=== PATIENT | male | born 1930 | race Caucasian/White ===

== ENCOUNTER 2016-09-09 09:13 | Emergency (ER) | payer MEDICARE, BC ==
[2016-09-09] MEDS ORDERED: SODIUM CHLORIDE 0.9% 1,000 ML IV ONE (10:11)
[2016-09-09] MEDS ORDERED: HYDROmorphone 1 MG/ML SYRINGE IVP STA (10:11)
[2016-09-09] MEDS ORDERED: KETOROLAC 60 MG/2 ML VIAL IVP STA (10:11)
[2016-09-09] MEDS ORDERED: ONDANSETRON 4 MG/2 ML VIAL IVP STA (10:11)
[2016-09-09] MEDS ORDERED: HYDROmorphone 1 MG/ML SYRINGE ONE (10:16)
[2016-09-09] MEDS ORDERED: KETOROLAC 30 MG/ML VIAL ONE (10:16)
[2016-09-09] MEDS ORDERED: ONDANSETRON 4 MG/2 ML VIAL ONE (10:55)
[2016-09-09] MEDS ORDERED: IOPAMIDOL-300 100 ML VIAL IVP ONE (11:49)
== END 2016-09-09 13:33 | disposition home or self-care (01) ==
DX: K56.60 Unspecified intestinal obstruction (principal); R11.2 Nausea with vomiting, unspecified; I10 Essential (primary) hypertension; I25.10 Atherosclerotic heart disease of native coronary artery without angina pectoris; Z95.1 Presence of aortocoronary bypass graft; Z79.82 Long term (current) use of aspirin
CPT/HCPCS: 36415; 74177; 80053; 83690; 85025; 96361; 96374; 96375; 99283; 99284; J1170; Q9967

== ENCOUNTER 2017-04-10 10:27 | Outpatient (CLI) | payer MEDICARE, BC ==
--- NOTE | 2017-04-10 12:53 | XRAY Report ---
THREE VIEW LEFT KNEE: 04/10/2017 CLINICAL INDICATION: Pain. FINDINGS: AP, lateral, and sunrise views of the left knee are compared to previous films of 05/17/20 14. Mild osteoarthritis is present. There is no evidence of fracture. No effusion is seen. Surgical clips are stable in the medial soft tissues. IMPRESSION: MILD OSTEOARTHRITIS. NO EVIDENCE OF FRACTURE. NO SIGNIFICANT INTERVAL CHANGE. JOB #: [id number] EXT JOB #:[id number]
== END 2017-04-10 10:28 | disposition home or self-care (01) ==
LOC: DI.S 10:27
PROVIDERS: ATTEND Internal Medicine
DX: M17.12 Unilateral primary osteoarthritis, left knee (principal)

== ENCOUNTER 2017-04-12 09:50 | Outpatient (CLI) | payer MEDICARE, BC ==
--- NOTE | 2017-04-12 11:24 | Ultrasound Report ---
ULTRASOUND LEFT ANTERIOR COBB: 04/12/2017 CLINICAL INDICATION: Edema and erythematous nodule. TECHNIQUE: Real-time scanning was performed with accounts payable representative static images obtained. FINDINGS: Ultrasound of the region of swelling was performed. There is a 2.2 x 2.1 x 0.7 cm hematom a, with surrounding edema. No sonographically suspicious findings are seen. IMPRESSION: SMALL HEMATOMA, WITH SURROUNDING EDEMA. JOB #: [id number] [id number] JOB #:[id number]
== END 2017-04-12 09:51 | disposition home or self-care (01) ==
LOC: DI 09:50
PROVIDERS: ATTEND Internal Medicine
DX: S80.12XA Contusion of left lower leg, initial encounter (principal); R60.0 Localized edema
CPT/HCPCS: 76882

== ENCOUNTER 2017-06-11 15:06 | Outpatient (CLI) | payer MEDICARE, BC ==
[2017-06-11 17:59] LABS: HCT - HEMATOCRIT 34.6 % (42.0-52.0); HGB - HEMOGLOBIN 11.5 g/dL (14.0-18.0); MEAN CORPUSCULAR HEMOGLOBIN 30.6 pg (27.0-31.0); MEAN CORPUSCULAR HGB CONC 33.4 g/dL (32.0-36.0); MEAN CORPUSCULAR VOLUME 91.8 fL (80.0-94.0); MEAN PLATELET VOLUME 8.3 fL (7.4-11.4); RED BLOOD COUNT 3.77 10^6/uL (4.70-6.10); RED CELL DISTRIBUTION WIDTH 14.6 % (12.0-15.0); WHITE BLOOD COUNT 4.8 x10^3/uL (4.8-10.8)
[2017-06-11 18:38] LABS: CALCIUM 8.1 mg/dL (8.5-10.3); CREATININE 0.9 mg/dL (0.6-1.2)
== END 2017-06-11 15:07 | disposition home or self-care (01) ==
LOC: LAB.F 15:06
PROVIDERS: ATTEND Surgery
DX: K56.600 Partial intestinal obstruction, unspecified as to cause (principal)
CPT/HCPCS: 36415; 80048

== ENCOUNTER 2017-07-01 10:30 | Emergency (ER) | payer MEDICARE, BC ==
--- NOTE | 2017-07-01 13:18 | ED Physician Documentation ---
History of Present Illness - Stated complaint Stated Complaint: LOW ABD PX - Chief complaint Chief Complaint: Abd Pain - History obtained from History obtained from: Patient - History of Present Illness Timing: How many days ago (2) Pain level max: 5 Pain level now: 2 Improved by: reducing the hernia Worsened by: nothing - Additonal information Additional information: Patient is an 86-year-old male who presents to the emergency department with what appears to be a left sided abdominal hernia, complains of it increasing in size over the past week or so, states it is still reducible. Did have some pain , though this is now resolved. No vomiting. Review of Systems Throat: denies: Sore throat Cardiac: denies: Chest pain / pressure Respiratory: denies: Cough GI: denies: Vomiting, Constipation, Diarrhea Skin: denies: Rash Musculoskeletal: denies: Neck pain, Back pain Neurologic: denies: Headache PD PAST MEDICAL HISTORY - Past Medical History Past Medical History: Yes Cardiovascular: Hypertension, High cholesterol, Coronary artery disease Respiratory: Sleep apnea Neuro: None Endocrine/Autoimmune: None GI: Other : Benign prostate hypertrophy HEENT: Chronic vision loss, Chronic hearing loss Psych: None Musculoskeletal: Osteoarthritis, Chronic back pain Derm: Psoriasis, Other - Past Surgical History Past Surgical History: Yes General: Appendectomy, Bowel surgery, Gastric surgery, Colonoscopy, EGD, Other Ortho: Hip replacement Cardiovascular: CABG, Other HEENT: Tonsil/Adenoidectomy Derm: Skin cancer surgery - Present Medications Home Medications: Ambulatory Orders Medication Instructions Recorded Confirmed Aspirin [Aspir 81] 81 mg PO DAILY 06/05/13 07/01/17 Lisinopril [Zestril] 2.5 mg PO DAILY 06/05/13 07/01/17 Atorvastatin Calcium 80 mg PO DAILY 11/19/15 07/01/17 - Allergies Allergies/Adverse Reactions: Allergies Allergy/AdvReac Type Severity Reaction Status Date / Time No Known Drug Allergies Allergy Verified 07/01/17 11:01 - Social History Does the pt smoke?: No Smoking Status: Never smoker Does the pt drink ETOH?: No Does the pt have substance abuse?: No - Immunizations Immunizations are current?: Yes Immunizations: TDAP current <10years PD ED PE NORMAL - Vitals Vital signs reviewed: Yes - General General: Alert and oriented X 3, No acute distress - HEENT HEENT: Moist mucous membranes - Neck Neck: Supple, no meningeal sign - Cardiac Cardiac: RRR - Respiratory Respiratory: No respiratory distress, Clear bilaterally - Abdomen Abdomen: Soft, Non tender, Non distended, Other (small L sided femoral hernia. easily reduces. no tenderness over the remainder of the abdomen.) - Derm Derm: Warm and dry - Neuro Neuro: Alert and oriented X 3 - Psych Psych: Normal mood, Normal affect Results - Vitals Vitals: Vital Signs - 24 hr 07/01/17 07/01/17 10:57 13:33 Temperature 36.5 C Heart Rate 75 81 Respiratory 16 20 Rate Blood Pressure 128/75 146/80 H O2 Saturation 99 98 Oxygen O2 Source Room air PD MEDICAL DECISION MAKING - ED course Complexity details: considered differential, d/w patient ED course: Patient is an 86-year-old male who presents to the emergency department with an easily reducible left femoral hernia. No evidence of obstruction or incarceration. No gangrene. Abdomen is soft, nontender nondistended. We will have him follow-up with his doctor for further evaluation and care. Patient counseled regarding signs and symptoms for which I believe and urgent re- evaluation would be necessary. Patient with good understanding of and agreement to plan and is comfortable going home at this time This document was made in part using voice recognition software. While efforts are made to proofread this document, sound alike and grammatical errors may occur. Departure - Departure Disposition: 01 Home, Self Care Clinical Impression: Femoral hernia of left side Condition: Good Instructions: ED Hernia Inguinal Follow-Up: Lebron Cortes MD [Primary Care Provider] - Juliette Garcia MD [Physician No Access] - Within 1 week Comments: You appear to have a hernia on the left side of your abdomen. If you are unable to reduce this at home, the pain becomes severe or you develop vomiting, you need to return immediately. Otherwise follow-up with your doctor as instructed. Discharge Date/Time: 07/01/17 13:33
[2017-07-01 13:36] VITALS: BP 146/80
== END 2017-07-01 13:33 | disposition home or self-care (01) ==
LOC: ED 10:30
DX: K41.90 Unilateral femoral hernia, without obstruction or gangrene, not specified as recurrent (principal); I10 Essential (primary) hypertension; I25.10 Atherosclerotic heart disease of native coronary artery without angina pectoris; Z95.1 Presence of aortocoronary bypass graft; E78.00 Pure hypercholesterolemia, unspecified; G47.30 Sleep apnea, unspecified; N40.0 Benign prostatic hyperplasia without lower urinary tract symptoms; M19.90 Unspecified osteoarthritis, unspecified site; Z79.82 Long term (current) use of aspirin
CPT/HCPCS: 99283; 99284

== ENCOUNTER 2017-07-15 08:25 | Emergency (ER) | payer MEDICARE, BC ==
[2017-07-15] MEDS ORDERED: FUROSEMIDE 40 MG/4 ML VIAL IVP STA (09:30)
[2017-07-15] MEDS ORDERED: FUROSEMIDE 40 MG/4 ML VIAL ONE (10:03)
[2017-07-15 10:13] LABS: BASOPHILS % (AUTO) 1.2 %; EOSINOPHILS # (AUTO) 0.1 10^3/uL (0.0-0.7); EOSINOPHILS % (AUTO) 1.9 %; HCT - HEMATOCRIT 31.8 % (42.0-52.0); HGB - HEMOGLOBIN 10.8 g/dL (14.0-18.0); LYMPHOCYTES # (AUTO) 0.9 10^3/uL (1.5-3.5); LYMPHOCYTES % (AUTO) 22.9 %; MEAN CORPUSCULAR HEMOGLOBIN 29.5 pg (27.0-31.0); MEAN CORPUSCULAR HGB CONC 33.8 g/dL (32.0-36.0); MEAN CORPUSCULAR VOLUME 87.2 fL (80.0-94.0); MEAN PLATELET VOLUME 6.4 fL (7.4-11.4); MONOCYTES # (AUTO) 0.4 10^3/uL (0.0-1.0); MONOCYTES % (AUTO) 9.7 %; NEUTROPHILS # (AUTO) 2.5 10^3/uL (1.5-6.6); NEUTROPHILS % (AUTO) 64.3 %; RED BLOOD COUNT 3.65 10^6/uL (4.70-6.10); RED CELL DISTRIBUTION WIDTH 15.1 % (12.0-15.0); UNCORRECTED WHITE BLOOD COUNT 3.9 x10^3/uL; WHITE BLOOD COUNT 3.9 x10^3/uL (4.8-10.8)
[2017-07-15 10:28] LABS: ALBUMIN/GLOBULIN RATIO 0.8 (1.0-2.2); BILIRUBIN,TOTAL 0.6 mg/dL (0.2-1.0); CREATININE 0.9 mg/dL (0.6-1.2); POTASSIUM 3.9 mmol/L (3.5-5.0); TOTAL PROTEIN 5.8 g/dL (6.7-8.2)
[2017-07-15 12:07] LABS: BILIRUBIN,URINE NEGATIVE (NEGATIVE)
[2017-07-15 12:11] LABS: UA CHARGE (STRIP ONLY) YES; UR CULTURE IF IND NOT INDICATED
[2017-07-15 12:43] VITALS: BP 99/65
--- NOTE | 2017-07-15 13:00 | ED Physician Documentation ---
History of Present Illness - Stated complaint Stated Complaint: LEFT LEG PX - Chief complaint Chief Complaint: General - History obtained from History obtained from: Patient - History of Present Illness Timing: How many days ago (3) - Additonal information Additional information: 86-year-old male has had some recent surgery done at [facility] in [place] about 1 week ago about 3 days ago he began to develop some swelling of his lower extremities. He has some pain associated with this. Both of his lower extremities are swollen. He had an inguinal hernia done open and and ex-lap done laproscopically for lysis of adhesions. Review of Systems Constitutional: denies: Fever, Chills, Myalgias, Fatigue Eyes: denies: Decreased vision Ears: denies: Ear pain Nose: denies: Congestion Throat: denies: Sore throat Cardiac: denies: Chest pain / pressure, Palpitations Respiratory: denies: Dyspnea, Cough GI: denies: Abdominal Pain, Nausea, Vomiting : denies: Dysuria, Frequency Skin: denies: Rash Musculoskeletal: reports: Extremity pain, Extremity swelling. denies: Neck pain , Back pain Neurologic: denies: Generalized weakness, Focal weakness, Numbness PD PAST MEDICAL HISTORY - Past Medical History Past Medical History: Yes Cardiovascular: Hypertension, High cholesterol, Coronary artery disease Respiratory: Sleep apnea Neuro: None Endocrine/Autoimmune: None GI: Other : Benign prostate hypertrophy HEENT: Chronic vision loss, Chronic hearing loss Psych: None Musculoskeletal: Osteoarthritis, Chronic back pain Derm: Psoriasis, Other - Past Surgical History Past Surgical History: Yes General: Appendectomy, Bowel surgery, Gastric surgery, Colonoscopy, EGD, Other Ortho: Hip replacement Cardiovascular: CABG, Other HEENT: Tonsil/Adenoidectomy Derm: Skin cancer surgery - Present Medications Home Medications: Ambulatory Orders Medication Instructions Recorded Confirmed Aspirin [Aspir 81] 81 mg PO DAILY 06/05/13 07/01/17 Lisinopril [Zestril] 2.5 mg PO DAILY 06/05/13 07/01/17 Atorvastatin Calcium 80 mg PO DAILY 11/19/15 07/01/17 - Allergies Allergies/Adverse Reactions: Allergies Allergy/AdvReac Type Severity Reaction Status Date / Time No Known Drug Allergies Allergy Verified 07/01/17 11:01 - Social History Does the pt smoke?: No Smoking Status: Never smoker Does the pt drink ETOH?: No Does the pt have substance abuse?: No - Immunizations Immunizations are current?: Yes Immunizations: TDAP current <10years PD ED PE NORMAL - Vitals Vital signs reviewed: Yes (normal ) - General General: No acute distress, Well developed/nourished - HEENT HEENT: Atraumatic, PERRL - Neck Neck: Supple, no meningeal sign - Cardiac Cardiac: RRR, No murmur - Respiratory Respiratory: No respiratory distress, Clear bilaterally - Abdomen Abdomen: Soft, Non tender, Other (The surgical scars appear to be healing well without signs of inflamation ) - Back Back: No CVA TTP, No spinal TTP - Derm Derm: Normal color, Warm and dry, No rash - Extremities Extremities: No deformity, Other (There is doughy edema bilaterally to the knee. ) - Neuro Neuro: No motor deficit, No sensory deficit Eye Opening: Spontaneous Motor: Obeys Commands Verbal: Oriented GCS Score: 15 - Psych Psych: Normal mood, Normal affect Results - Vitals Vitals: Vital Signs - 24 hr 07/15/17 07/15/17 07/15/17 08:39 09:59 10:23 Temperature 36.4 C L Heart Rate 68 63 60 Respiratory 18 15 18 Rate Blood Pressure 123/64 121/61 102/59 L O2 Saturation 100 99 97 07/15/17 07/15/17 11:48 12:43 Temperature 36.8 C Heart Rate 69 64 Respiratory 14 15 Rate Blood Pressure 111/49 L 99/65 O2 Saturation 97 98 Oxygen O2 Source Room air - Labs Labs: Laboratory Tests 07/15/17 07/15/17 07/15/17 10:10 10:10 12:00 WBC 3.9 L RBC 3.65 L Hgb 10.8 L Hct 31.8 L MCV 87.2 MCH 29.5 MCHC 33.8 RDW 15.1 H Plt Count 262 MPV 6.4 L Neut # 2.5 Lymph # 0.9 L Hartley # 0.4 Eos # 0.1 Baso # 0.0 Absolute Nucleated RBC 0.00 Nucleated RBC % 0.0 Sodium 135 Potassium 3.9 Chloride 101 Carbon Dioxide 24 Anion Gap 10.0 BUN 16 Creatinine 0.9 Estimated GFR (MDRD) 80 L Glucose 92 Calcium 8.0 L Total Bilirubin 0.6 AST 37 ALT 17 Alkaline Phosphatase 101 Total Protein 5.8 L Albumin 2.6 L Globulin 3.2 Albumin/Globulin Ratio 0.8 L Lipase 28 Urine Color LT. YELLOW Urine Clarity CLEAR Urine pH 6.0 Ur Specific [place] <=1.005 Urine Protein NEGATIVE Urine Glucose (UA) NEGATIVE Urine Ketones NEGATIVE Urine Occult Blood NEGATIVE Urine Nitrite NEGATIVE Urine Bilirubin NEGATIVE Urine Urobilinogen 0.2 (NORMAL) Ur Leukocyte Esterase NEGATIVE Ur Microscopic Review NOT INDICATED Urine Culture Comments NOT INDICATED PD MEDICAL DECISION MAKING - ED course Complexity details: reviewed results, re-evaluated patient, considered differential, d/w patient ED course: 78-year-old male with some retained fluid after a hospitalization and a prolonged operation has some doughy edema bilaterally in his lower extremities he is administered a dose of Lasix intravenously with rapid diuresis and improvement in his edema. Departure - Departure Disposition: 01 Home, Self Care Clinical Impression: Fluid retention in legs Condition: Stable Instructions: ED Edema Legs Bilateral Follow-Up: Lebron Cortes MD [Primary Care Provider] - Comments: Today it appears the fluid you were given in the hospital has accumulated in your legs and we have given you some lasix. Keep your feet elevated and wear some compression stockings for the next week. Expect the swelling to continue to improve. Discharge Date/Time: 07/15/17 13:33
== END 2017-07-15 13:33 | disposition home or self-care (01) ==
LOC: ED 08:25
DX: R60.0 Localized edema (principal); I10 Essential (primary) hypertension; I25.10 Atherosclerotic heart disease of native coronary artery without angina pectoris; E78.00 Pure hypercholesterolemia, unspecified; G47.30 Sleep apnea, unspecified; N40.0 Benign prostatic hyperplasia without lower urinary tract symptoms; M19.90 Unspecified osteoarthritis, unspecified site; Z79.82 Long term (current) use of aspirin
CPT/HCPCS: 36415; 80053; 81001; 81003; 83690; 85025; 87086; 96374; 99283; 99284

== ENCOUNTER 2017-08-11 20:22 | Outpatient (CLI) | payer MEDICARE, BC | END 2017-08-11 20:23 | disposition short-term general hospital (02) | LOC: EMS 20:22 | PROVIDERS: ATTEND Surgery | DX: R10.9 Unspecified abdominal pain (principal) | CPT/HCPCS: A0425; A0427 ==